=== PATIENT | female | born 1995 | race African-American/Black ===

== ENCOUNTER 2023-03-10 14:57 | Emergency (ER) | payer MEDICAID, OTHER ==
[~2023-03-10] VITALS: Ht 162.6 cm; Wt 69.8 kg
[2023-03-10 14:57] VITALS: BP 116/73; PULSE 86; RESP 16; TEMP 98; O2SAT 100
[2023-03-10] MEDS ORDERED: AZIT500T66 PO (16:56)
[2023-03-10] MEDS ORDERED: PRED20TA2 PO (16:56)
== END 2023-03-10 17:35 | disposition home or self-care (01) ==
LOC: ER 14:57
DX: J03.90 Acute tonsillitis, unspecified (principal); J20.9 Acute bronchitis, unspecified; R07.89 Other chest pain; F17.210 Nicotine dependence, cigarettes, uncomplicated; Z79.2 Long term (current) use of antibiotics; Z79.899 Other long term (current) drug therapy
CPT/HCPCS: 71045